=== PATIENT | male | born 1930 | race Caucasian/White ===

== ENCOUNTER 2018-05-31 22:49 | Observation (INO) ==
[2018-05-31] MEDS ORDERED: Ipratropium/Albuterol Neb 3 ML IH ONE (22:59)
[2018-05-31] MEDS ORDERED: methylPREDNISolone 125 MG/2 ML VIAL IVP ONE (23:19)
--- NOTE | 2018-05-31 23:20 | Emergency Department Note ---
Addendum entered and electronically signed by Berry Maldonado DO 06/01/18 00:50: 05/31/2018. EKG. Normal sinus rhythm. Heart rate 81. DC 160. QRS 90. QTC 442. Normal axis. No acute ST elevation or depression. Original Note: Disposition Clinical Impression: COPD exacerbation Dyspnea Qualifiers: Dyspnea type: unspecified Qualified Code(s): R06.00 - Dyspnea, unspecified Disposition: Admitted As Inpatient Condition: Fair Time of Disposition: 00:48 SOB HPI - General Chief Complaint: ED Shortness of Breath/Dyspnea Stated Complaint: kellie hx of copd Time Seen by Provider: 05/31/18 22:58 Source: patient, family Mode of arrival: ambulatory Limitations: no limitations Nursing Notes Reviewed: Yes Vital Signs Reviewed: Yes - History of Present Illness Patient is an 87-year-old male with past medical history of hypertension, hyperlipidemia, CHF, COPD. He currently takes daily Lasix, Ventolin inhaler. Does not take any current oral steroids or antibiotics. He presents today due to concern for COPD exacerbation. He states that he uses 2 L nasal cannula at home while at rest, 3 L when up and exerting himself. Over the past week, he has had increased cough above baseline, productive phlegm, increasing shortness of breath especially with exertion. He denies any other fevers, nausea, vomiting, diarrhea, abdominal pain. Denies any overt chest pain but does state several times that he is worried that he may have had a heart attack within the past week. He is having history of bypass but denies any history of any stents or NV. - Related Data Home Medications Medication Instructions Recorded Confirmed Furosemide [Lasix] 20 mg PO DAILY 10/15/15 06/01/18 Albuterol Neb [AccuNeb] 0.63 mg IH Q6H PRN 09/14/16 06/01/18 Enalapril Maleate [Vasotec] 10 mg PO DAILY 09/14/16 06/01/18 Metoprolol Tartrate [Lopressor] 25 mg PO DAILY 09/14/16 06/01/18 Omeprazole [PriLOSEC] 40 mg PO DAILY 09/14/16 06/01/18 Simvastatin [Zocor] 40 mg PO DAILY 09/14/16 06/01/18 Albuterol Sulfate [Ventolin Hfa] 18 gm IH Q4H PRN 06/01/18 06/01/18 Aspirin Enteric Coated [Aspirin EC] 81 mg PO DAILY 06/01/18 06/01/18 Cholecalciferol (Vitamin D3) 1,000 unit PO DAILY 06/01/18 06/01/18 [Vitamin D] Cyanocobalamin (Vitamin B-12) 50 mcg PO DAILY 06/01/18 06/01/18 [Vitamin B-12] Finasteride [Proscar] 5 mg PO DAILY 06/01/18 06/01/18 Isosorbide MONOnitrate (24 HR) 30 mg PO DAILY 06/01/18 06/01/18 [Imdur] Previous Rx's Medication Instructions Recorded Tamsulosin [Flomax] 0.4 mg PO HS #30 capsule 12/25/15 Allergies Allergy/AdvReac Type Severity Reaction Status Date / Time Qanzscp-Qhj-Vrv Reductase Allergy See Verified 10/15/15 16:55 Inhibitor Comments [HMG-Coa Reductase Inhibitors] clopidogrel AdvReac Shakiness Verified 10/15/15 16:55 All systems ED: reviewed and negative except as stated. Constitutional: Denies: fever Cardiovascular: Denies: chest pain Respiratory: Reports: dyspnea Gastrointestinal: Denies: abdominal pain, nausea, vomiting, diarrhea Genitourinary: Denies: urgency, dysuria Integumentary: Denies: rash Neurological: Denies: headache, weakness, numbness, paresthesias Past Medical History - Past Medical History Attestation: Yes The following information was validated with the patient. Medical history: Reports: cardiomyopathy, CHF, COPD, hypertension, myocardial infarction Surgical history: Reports: coronary bypass (CABG) Psychiatric history: Reports: no psych history - Social History Smoking Status: Never smoker Smokeless Tobacco Status: No Alcohol use: Reports: none Drug use: Reports: none Physical Exam - General Limitations: no limitations General appearance: alert - Head Head exam: atraumatic, normocephalic, normal inspection - Eye Eye exam: Present: normal appearance, PERRL, EOMI - ENT ENT exam: normal exam, normal oropharynx, mucous membranes moist - Neck Neck exam: Present: normal inspection, full ROM, trachea midline - Chest Chest inspection: Present: normal inspection, symmetric chest wall rise - Respiratory Respiratory exam: Present: other (Significant wheezes throughout, decreased aeration throughout) - Cardiovascular Cardiovascular exam: Present: regular rate, normal rhythm, normal heart sounds - Abdominal Exam Abdominal exam: Present: soft, Non-Tender. Absent: tenderness, distention, guarding, rebound, rigidity - Extremities Exam Extremities exam: Present: normal inspection, full ROM, pedal edema (Trace pedal edema bilaterally). Absent: tenderness, calf tenderness - Neurological Exam Neurological exam: Present: alert, oriented X3 - Psychiatric Psychiatric exam: Present: normal affect, normal mood - Skin Skin exam: Present: warm, dry, intact, normal color Course Course Narrative: Patient was 91% on 2 L nasal cannula oxygen when he arrived. He is now currently receiving a DuoNeb treatment and is 98% while on treatment. He has significant wheezing throughout all lung haro and decreased aeration throughout. Otherwise, the rest of the physical exam was fairly benign. We will obtain basic blood work, troponin, EKG, chest x-ray. With near hypoxia on home O2, increased work of breathing, significant wheezing, will plan on admitting the patient. We will give azithromycin for COPD exacerbation along with Solu-Medrol and DuoNeb 3. 00:45 chest x-ray negative. Troponin negative. EKG showed no acute ST elevation or depression. Due to increased oxygen demand, increased work of breathing, we will admit for further care. Patient is not requiring BiPAP at this time. Chest X-Ray 05/31/18 23:18 IMPRESSION: Negative portable chest. D/ / Franklyn Garcia MD / Franklyn Garcia MD Interpreting Provider: Franklyn Garcia MD Vital Signs Temperature 98.1 F 05/31/18 22:54 Pulse Rate 88 05/31/18 22:54 Respiratory Rate 28 05/31/18 22:54 Blood Pressure 188/90 05/31/18 22:54 O2 Sat by Pulse Oximetry 91 05/31/18 22:54 Temperature 97.8 F 06/01/18 04:00 Pulse Rate 83 06/01/18 04:00 Respiratory Rate 16 06/01/18 04:00 Blood Pressure 156/91 06/01/18 04:00 O2 Sat by Pulse Oximetry 95 06/01/18 04:00 Oxygen Delivery Oxygen Delivery Nasal Cannula Shortness of Breath/Dyspnea - MDM Narrative Medical decision making narrative: Patient was 91% on 2 L nasal cannula oxygen when he arrived. He is now currently receiving a DuoNeb treatment and is 98% while on treatment. He has significant wheezing throughout all lung haro and decreased aeration throughout. Otherwise, the rest of the physical exam was fairly benign. We will obtain basic blood work, troponin, EKG, chest x-ray. With near hypoxia on home O2, increased work of breathing, significant wheezing, will plan on admitting the patient. We will give azithromycin for COPD exacerbation along with Solu-Medrol and DuoNeb 3. 00:45 chest x-ray negative. Troponin negative. EKG showed no acute ST elevation or depression. Due to increased oxygen demand, increased work of breathing, we will admit for further care. Patient is mildly improved after treatment, not requiring BiPAP at this time. - Medical Records Medical records reviewed: Yes I reviewed the patient's medical records. - Lab Data Lab results reviewed: Yes I reviewed the patient's lab results. Result diagrams: 06/01/18 03:47 06/01/18 03:47 Lab Results 05/31/18 05/31/18 05/31/18 Range/Units 23:18 23:18 23:18 WBC 10.5 (4.3-11.1) K/mcL RBC 3.83 L (4.19-5.50) M/mcL Hgb 11.8 L (12.9-16.9) g/dL Hct 36.5 L (37.5-50.1) % MCV 95.3 (83.0-100.0) fL MCH 30.8 (28.0-33.3) pg MCHC 32.3 (31.6-35.5) g/dL RDW 12.5 (11.5-14.5) % Plt Count 154 (140-400) K/mcL MPV 11.8 (9.4-12.4) fL Immature Gran % 0.3 (0-4) % Seg Neutrophils % 74.3 % Lymphocytes % 12.8 % Monocytes % 6.7 % Eosinophils % 5.5 % Basophils % 0.4 % Neutrophils # 7.8 (1.6-8.9) K/mcL Lymphocytes # 1.3 (0.6-4.6) K/mcL Monocytes # 0.7 (0.0-1.3) K/mcL Eosinophils # 0.6 (0.0-0.6) K/mcL Basophils # 0.0 (0.0-0.2) K/mcL Sodium 135 L (136-145) mEq/L Potassium 4.3 (3.5-5.1) mEq/L Chloride 100 (98-107) mEq/L Carbon Dioxide 27 (23-29) mEq/L BUN 29 H (8-23) mg/dL Creatinine 1.02 (0.70-1.30) mg/dL Est GFR ( Amer) > 60 (> 60) Est GFR (Non-Af Amer) > 60 (> 60) BUN/Creatinine Ratio 28 H (6-26) Glucose 119 H (70-105) mg/dL Calculated Osmolality 287 (280-300) Calcium 9.4 (8.6-10.3) mg/dL Troponin I < 0.03 (< 0.04) ng/mL B-Natriuretic Peptide 54 (Less than 100) pg/mL - Radiology Data Radiology results reviewed: Yes I reviewed the patient's radiology results. Chest X-Ray 05/31/18 23:18 IMPRESSION: Negative portable chest. D/ / Franklyn Garcia MD / Franklyn Garcia MD Interpreting Provider: Franklyn Garcia MD - EKG Data EKG attestation: Yes I reviewed and interpreted this EKG. S.B.A.R. - S.B.A.R. Situation: Demographics, MOA Background: Presenting Complaint, Relevant PMH, Meds, & Allergies Assessment: Vital Signs, Course and respsone to treatment, Exam Concerns, Patient/Family Expectation, Pertinant Lab Results, Outstanding Labs Recommendation: Barrier(s) to disposition, Recommendation based on pending studies, treatments, or consults S.B.A.R. Report Given to: Dr. Yang, [facility] pending Attestation Statement - Attestation Attestation: I examined this patient and my medical decision-making was reviewed with the Resident Physician. I agree with the documented findings, disposition and treatment plan as described except to the extent set forth below. Findings consistent with COPD exacerbation. Bronchodilators, steroids, antibiotics.
[2018-05-31] MEDS ORDERED: Azithromycin 500 MG in D5% in Water 250 ML IVPB ONE (23:42)
[2018-06-01 00:27] LABS: Troponin I < 0.03 ng/mL (< 0.04)
[2018-06-01 00:33] LABS: Basophils % 0.4 %; Eosinophils # 0.6 K/mcL (0.0-0.6); Eosinophils % 5.5 %; Hematocrit 36.5 % (37.5-50.1); Hemoglobin 11.8 g/dL (12.9-16.9); Immature Granulocytes % 0.3 % (0-4); Lymphocytes # 1.3 K/mcL (0.6-4.6); Lymphocytes % 12.8 %; Mean Corpuscular HGB Conc 32.3 g/dL (31.6-35.5); Mean Corpuscular Hemoglobin 30.8 pg (28.0-33.3); Mean Corpuscular Volume 95.3 fL (83.0-100.0); Mean Platelet Volume 11.8 fL (9.4-12.4); Monocytes # 0.7 K/mcL (0.0-1.3); Monocytes % 6.7 %; Neutrophils # 7.8 K/mcL (1.6-8.9); Platelet Count 154 K/mcL (140-400); Red Blood Count 3.83 M/mcL (4.19-5.50); Red Cell Distribution Width 12.5 % (11.5-14.5); Segmented Neutrophils % 74.3 %
[2018-06-01] MEDS ORDERED: Acetaminophen 325 MG TABLET PO PRN (01:27)
[2018-06-01] MEDS ORDERED: Naloxone 0.4 MG/ML INJ IVP PRN (01:27)
[2018-06-01] MEDS ORDERED: 0.9 % Sodium Chloride 1,000 ML IVC SCH (01:30)
[2018-06-01 03:03] LABS: Blood Urea Nitrogen 29 mg/dL (8-23); Calcium 9.4 mg/dL (8.6-10.3); Carbon Dioxide 27 mEq/L (23-29); Chloride 100 mEq/L (98-107); Glucose 119 mg/dL (70-105); Osmolality,Calculated 287 (280-300); Potassium 4.3 mEq/L (3.5-5.1); Sodium 135 mEq/L (136-145)
[2018-06-01 03:31] LABS: BUN/Creatinine Ratio 28 (6-26); eGFR For Non-African Americans > 60 (> 60)
[2018-06-01 04:32] LABS: Basophils % 0.2 %; Eosinophils # 0.1 K/mcL (0.0-0.6); Eosinophils % 0.6 %; Hemoglobin 12.5 g/dL (12.9-16.9); Immature Granulocytes % 0.4 % (0-4); Lymphocytes # 0.4 K/mcL (0.6-4.6); Lymphocytes % 3.6 %; Mean Corpuscular HGB Conc 32.9 g/dL (31.6-35.5); Mean Corpuscular Hemoglobin 31.8 pg (28.0-33.3); Mean Corpuscular Volume 96.7 fL (83.0-100.0); Mean Platelet Volume 11.8 fL (9.4-12.4); Monocytes # 0.1 K/mcL (0.0-1.3); Monocytes % 0.9 %; Neutrophils # 10.6 K/mcL (1.6-8.9); Platelet Count 145 K/mcL (140-400); Red Blood Count 3.93 M/mcL (4.19-5.50); Red Cell Distribution Width 12.1 % (11.5-14.5); Segmented Neutrophils % 94.3 %
--- NOTE | 2018-06-01 04:47 | Internal Med History&Physical ---
Date of Encounter: 06/01/18 Time of Encounter: 04:35 Internal Medicine - H&P: HPI Chief complaint: SOB History of present illness: Mr. Garza is a 87 year old male with a past medical history of hypertension, COPD on home oxygen, hyperlipidemia and heart failure with preserved ejection fraction with an EF of 60% (based on echo in 2016) who presents with acute onset shortness of breath. Patient states that he was in his usual state of health when all of a sudden around 3:00 he suddenly started having significant wheezing. Patient states he took his nebulizer treatments which did not help. It was not until he took his sublingual nitroglycerin that his symptoms subside. However, it is unclear if patient is a poor historian given that the history obtained from the ED is somewhat different. Per ED report, over the past week, he has had increased cough above baseline, productive phlegm, increasing shortness of breath especially with exertion. However patient does confirm worsening shortness of breath with exertion. He denies any other fevers , nausea, vomiting, diarrhea, abdominal pain. Denies any overt chest pain but does state he gets intermittent left-sided chest pain which she describes as a dull ache that is nonexertional, nonradiating, non-positional and nonpleuritic. On initial assessment in the ED, Patient was 91% on 2 L nasal cannula oxygen when he arrived subsequently increased improved to 98% after receiving treatment. Significant wheezing throughout all lung haro and decreased aeration throughout were noted. Was started on azithromycin for COPD exacerbation along with Solu-Medrol and DuoNeb 3. Past Med Surg Social Fam HX - Past Medical History Medical history: cardiomyopathy, CHF, COPD, hypertension, myocardial infarction Additional medical history: CAD, BPH, PAD,. SOB. angina pectoris Psychiatric history: no psych history - Past Surgical History Surgical History: coronary bypass (CABG) Additional surgical history: heart cath x3, bowel surgery - Social History Smoking Status: Never smoker Smokeless Tobacco Status: No Alcohol use: none Drug use: none - Family History Mother Living Status: Hx Family Cardiac Disorders: Yes (mi) Hx Family Cancer: Yes (breast ca) Father Living Status: Hx Family Cardiac Disorders: Yes Hx Family Respiratory Disorders: Yes Internal Medicine - H&P: Meds Furosemide [Lasix] 20 mg PO DAILY 10/15/15 [History] Tamsulosin [Flomax] 0.4 mg PO HS #30 capsule 12/25/15 [Rx] Albuterol Neb [AccuNeb] 0.63 mg IH Q6H PRN 09/14/16 [History] Enalapril Maleate [Vasotec] 10 mg PO DAILY 09/14/16 [History] Metoprolol Tartrate [Lopressor] 25 mg PO DAILY 09/14/16 [History] Omeprazole [PriLOSEC] 40 mg PO DAILY 09/14/16 [History] Simvastatin [Zocor] 40 mg PO DAILY 09/14/16 [History] Albuterol Sulfate [Ventolin Hfa] 18 gm IH Q4H PRN 06/01/18 [History] Aspirin Enteric Coated [Aspirin EC] 81 mg PO DAILY 06/01/18 [History] Cholecalciferol (Vitamin D3) [Vitamin D] 1,000 unit PO DAILY 06/01/18 [History] Cyanocobalamin (Vitamin B-12) [Vitamin B-12] 50 mcg PO DAILY 06/01/18 [History] Finasteride [Proscar] 5 mg PO DAILY 06/01/18 [History] Isosorbide MONOnitrate (24 HR) [Imdur] 30 mg PO DAILY 06/01/18 [History] 3 Allergy/AdvReac Type Severity Reaction Status Date / Time Mrtncdf-Brd-Puk Reductase Allergy See Verified 10/15/15 16:55 Inhibitor Comments [HMG-Coa Reductase Inhibitors] clopidogrel AdvReac Shakiness Verified 10/15/15 16:55 All Systems PM: A 10-system review of systems was performed and is negative for pertinent findings except as documented above in the HPI. - Constitutional Constitutional: no chills, no fever(s), no night sweats - EENT Eyes: no change in vision, no discharge, no pain, no photophobia Ears: no ear discharge, no ear pain, no tinnitus Nose, mouth and throat: no dysphagia, no nasal discharge, no neck pain, no sore throat - Cardiovascular Cardiovascular ROS IM: no chest pain, no diaphoresis, no dyspnea, no lightheadedness, no palpitations, no syncope - Respiratory Respiratory: no cough, no dyspnea, no wheezing, no excessive phlegm production - Gastrointestinal Gastrointestinal: no abdominal pain, no diarrhea, no hematemesis, no hematochezia, no melena, no nausea, no vomiting - Musculoskeletal Musculoskeletal ROS IM: no numbness, no tingling - Integumentary Integumentary IM: no rash, no unusual bruising - Neurological Neurological ROS: no confusion, no convulsions, no focal weakness, no numbness, no tingling, no tremor(s) - Hematologic/Lymphatic Hematologic/Lymphatic: no easy bruising - Constitutional Vitals: Temp Pulse Resp BP Pulse Ox 97.8 F 85 18 155/81 94 06/01/18 02:33 06/01/18 02:33 06/01/18 02:33 06/01/18 02:33 06/01/18 02:33 Exam: General: Alert and oriented 3; lying in bed in no acute distress Skin:Normal color, no rash, no lesions. HEENT:EOM, pupils equal, round and reactive. Cardiovascular:Normal S1 & S2, no rubs, murmurs or gallops. No JVD. Pulse regular. Lungs:Normal breath sounds, no wheezes or crackles. Abdomen:Soft, non-tender, no rigidity. Extremities:No deformity, no edema or tenderness, no joint swelling or clubbing. Neurological:Normal cognition and motor skills. Pulses:Carotid and radial pulses normal +2. Rest of the physical exam is non contributory Internal Med - H&P Results - Labs CBC & Chem 7: 06/01/18 03:47 06/01/18 03:47 Labs: Short CBC 06/01/18 Range/Units 03:47 WBC 11.3 H (4.3-11.1) K/mcL Hgb 12.5 L (12.9-16.9) g/dL Hct 38.0 (37.5-50.1) % Plt Count 145 (140-400) K/mcL Neutrophils # 10.6 H (1.6-8.9) K/mcL - Assessment and plan (1) Dyspnea Current Visit: Yes Status: Acute Assessment and plan: Dyspnea likely secondary to COPD exacerbation. However, given a different history in which patient's symptoms improved after taking his nitroglycerin suggests maybe a CHF component. However patient does not report any orthopnea or paroxysmal nocturnal dyspnea nor does he had evidence of volume overload on physical examination. Low suspicion for PE however the chronicity of his symptoms with either acute or been progressing for several days is unclear and there was no evidence of tachycardia on initial presentation. At this time we will treat for COPD exacerbation. Continue with DuoNeb's and steroids and antibiotic coverage. Consider echocardiogram in the morning. Qualifiers: Dyspnea type: unspecified Qualified Code(s): R06.00 - Dyspnea, unspecified (2) COPD exacerbation Current Visit: Yes Status: Acute Assessment and plan: Mild COPD exacerbation without evidence of pneumonia on chest x-ray. Patient received DuoNeb treatments in the ED. He is feeling much better however, patient still has wheezing on physical examination. We will continue with treatment for COPD, dual nebs, steroids and azithromycin. (3) History of coronary artery disease Current Visit: No Status: Chronic Assessment and plan: History of coronary artery disease with reported intermittent left-sided chest pain described as achy occurring on and off at is non-positional, nonpleuritic and nonexertional. Initial troponin were negative. Negative troponins on initial assessment. EKG was reviewed which was normal and unchanged from previous EKG. At this point given his atypical chest pain which he states did not occur at the time of his reported onset of symptoms, will continue to trend troponins place patient on telemetry and consider echocardiogram in the morning. (4) BPH (benign prostatic hypertrophy) with urinary retention Current Visit: No Status: Acute Assessment and plan: Continue patient's home medications. (5) DVT prophylaxis Current Visit: No Status: Acute Assessment and plan: Subcutaneous heparin. - Time Spent With Patient Total time spent is greater than 50% in coordination of care (as documented) at patient's floor/unit and/or counseling patient:
[2018-06-01 05:00] LABS: Alanine Aminotransferase 9 Units/L (7-52); Albumin 4.2 g/dL (3.5-5.7); Albumin/Globulin Ratio 1.6 (1.1-2.2); Alkaline Phosphatase 104 Units/L (34-104); Aspartate Amino Transferase 12 Units/L (13-39); BUN/Creatinine Ratio 26 (6-26); Bilirubin,Total 0.4 mg/dL (0.3-1.0); Blood Urea Nitrogen 25 mg/dL (8-23); Calcium 9.5 mg/dL (8.6-10.3); Carbon Dioxide 29 mEq/L (23-29); Chloride 99 mEq/L (98-107); Globulin 2.6 g/dL (2.4-3.5); Glucose 153 mg/dL (70-105); Osmolality,Calculated 289 (280-300); Potassium 4.4 mEq/L (3.5-5.1); Sodium 136 mEq/L (136-145); Total Protein 6.8 g/dL (6.4-8.9); eGFR For Non-African Americans > 60 (> 60)
[2018-06-01 05:49] LABS: Troponin I < 0.03 ng/mL (< 0.04)
[2018-06-01] MEDS: MethylPREDNISolone 40 MG/ML VIAL IVP SCH ×3 (06:21→18:09)
[2018-06-01] MEDS: Isosorbide MONOnitrate (24 HR) 30 MG TAB.ER.24H PO SCH (09:39)
[2018-06-01] MEDS: Cholecalciferol (D-3) 1,000 UNIT TABLET PO SCH (09:39)
[2018-06-01] MEDS: Finasteride 5 MG TABLET PO SCH (09:40)
[2018-06-01] MEDS: Furosemide 20 MG TABLET PO SCH (09:40)
[2018-06-01] MEDS: Lisinopril 20 MG TABLET PO SCH (09:41)
[2018-06-01] MEDS: Aspirin Enteric Coated 81 MG Tablet PO SCH (09:41)
[2018-06-01] MEDS: Cyanocobalamin (B-12) 1,000 MCG TABLET PO SCH (09:41)
[2018-06-01] MEDS: *HR* Heparin 5,000 UNIT/ML VIAL SQ SCH ×2 (09:44→18:09)
[2018-06-01] MEDS: Ipratropium/Albuterol Neb 3 ML IH PRN ×2 (16:10→23:59)
[2018-06-02] MEDS ORDERED: Melatonin 3 MG TABLET PO ONE ×2 (00:30→20:51)
[2018-06-02] MEDS: *HR* Heparin 5,000 UNIT/ML VIAL SQ SCH ×4 (00:45→23:16)
[2018-06-02] MEDS: MethylPREDNISolone 40 MG/ML VIAL IVP SCH ×4 (00:45→17:53)
--- NOTE | 2018-06-02 06:36 | Electrocardiograph Report ---
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
[2018-06-02] MEDS: Ipratropium/Albuterol Neb 3 ML IH PRN ×2 (07:42→20:33)
[2018-06-02] MEDS: Cholecalciferol (D-3) 1,000 UNIT TABLET PO SCH (10:14)
[2018-06-02] MEDS: Aspirin Enteric Coated 81 MG Tablet PO SCH (10:14)
[2018-06-02] MEDS: Furosemide 20 MG TABLET PO SCH (10:14)
[2018-06-02] MEDS: Lisinopril 20 MG TABLET PO SCH (10:14)
[2018-06-02] MEDS: Finasteride 5 MG TABLET PO SCH (10:15)
[2018-06-02] MEDS: Isosorbide MONOnitrate (24 HR) 30 MG TAB.ER.24H PO SCH (10:15)
[2018-06-02] MEDS: Cyanocobalamin (B-12) 1,000 MCG TABLET PO SCH (10:15)
[2018-06-02] MEDS: Azithromycin 250 MG TABLET PO SCH (10:16)
--- NOTE | 2018-06-02 14:35 | Internal Med Progress Note ---
Hospitalist Progress Note - Encounter Date of Encounter: 06/02/18 Time of Encounter: 10:50 - Subjective Interval History: Feels much better today; improved shortness of breath and wheezing; improving cough; no chest pain, palpitations, fever/chills; - Exam Vitals: Temp Pulse Resp BP Pulse Ox 97.9 F 77 18 149/85 93 06/02/18 11:09 06/02/18 11:06/02/18 07:43 06/02/18 11:06/02/18 11:09 Exam: General: elderly male lying comfortably in bed in no acute distress Neck: No lymphadenopathy. No JVD. No carotid bruits. No palpable thyroid. Chest: B/L decreased air entry; scattered wheezing; Heart: Normal S1 & S2; rhythmic. No rubs or murmurs. Abdomen: Non-distended, soft and nontender Neurological: Awake, alert and oriented to person, place and time. No focal deficits. Psych: Affect appropriate. - Assessment and Plan (1) COPD exacerbation Current Visit: Yes Status: Acute Assessment and Plan: improving; continue macrolide, taper down IV steroids as tolerated; continue breathing treatments, supplemental O2 and supportive care; imaging showed no e/o- infiltrates; Plan of care discussed with patient's son at bedside. (2) DVT prophylaxis Current Visit: Yes Status: Acute Assessment and Plan: on s.c Heparin; (3) History of coronary artery disease Current Visit: Yes Status: Chronic (4) BPH (benign prostatic hypertrophy) with urinary retention Current Visit: Yes Status: Chronic (5) Essential hypertension Current Visit: Yes Status: Chronic Assessment and Plan: Blood pressure minimally elevated but acceptable at his age, likely due to IV steroids. Continue current management. (6) Chronic respiratory failure Current Visit: Yes Status: Chronic Assessment and Plan: Patient is noted to be on 2 L/m supplemental oxygen at rest and 3 L/m on ambulation, due to underlying COPD. (7) Congestive heart failure Current Visit: Yes Status: Chronic Assessment and Plan: Not in acute exacerbation. Echocardiogram shows preserved EF, mild diastolic dysfunction. Continue Lasix, beta bela, Imdur, PRIYA inhibitor. - Time Spent with Patient Total time spent is greater than 50% in coordination of care (as documented) at patient's floor/unit and/or counseling patient: Plan of Care Discussed with: patient Internal Medicine: Result - Labs CBC & Chem 7: 06/01/18 03:47 06/01/18 03:47 Labs: Cardiac Enzymes 06/01/18 Range/Units 17:14 Troponin I < 0.03 (< 0.04) ng/mL - Impressions Impressions Echocardiogram 06/01/18 08:49 Impressions: LVEF 65%. Normal LV chamber size, wall thickness and function. Mild left ventricular diastolic dysfunction. Normal right ventricular structure and function. No significant valvular dysfunction. No pulmonary hypertension. Left Ventricular Wall Motion: Rest Echo Findings All wall segments showed normal motion. Findings: Study Quality * Technically adequate exam. ECG Findings * Normal sinus rhythm. Left Ventricle * LVEF 65%. * Normal LV chamber size, wall thickness and function. * Mild left ventricular diastolic dysfunction. Right Ventricle * Normal right ventricular structure and function. Left Atrium * Normal left atrial size. Right Atrium * Normal right atrial size. Interatrial Septum * Interatrial septum not well evaluated. Aortic Valve * Mildly calcified aortic valve leaflets. * No aortic stenosis. * Trace aortic regurgitation. Mitral Valve * Normal mitral valve structure. * Trace mitral regurgitation. Tricuspid Valve * Normal tricuspid valve structure and function. * Trace tricuspid regurgitation. * Estimated RVSP is 31 mmHg. * Estimated RA pressure is 5 mmHg. * No pulmonary hypertension. Pulmonic Valve * Pulmonic valve not well visualized. * No pulmonic regurgitation. Aorta * Normally sized aortic root. Pericardium * The pericardium appears normal. IVC * Normal IVC dimensions and inspiratory collapse. Consult Discharge Plan - Plan Referrals: Carlita Domínguez DO [Primary Care Provider] - (6) Chronic respiratory failure Qualifiers: Respiratory failure complication: hypoxia Qualified Code(s): J96.11 - Chronic respiratory failure with hypoxia (7) Congestive heart failure Qualifiers: Heart failure type: diastolic Heart failure chronicity: chronic Qualified Code(s): I50.32 - Chronic diastolic (congestive) heart failure
[2018-06-03] MEDS: MethylPREDNISolone 40 MG/ML VIAL IVP SCH (04:52)
[2018-06-03] MEDS: Cyanocobalamin (B-12) 1,000 MCG TABLET PO SCH (08:30)
[2018-06-03] MEDS: Cholecalciferol (D-3) 1,000 UNIT TABLET PO SCH (08:30)
[2018-06-03] MEDS: *HR* Heparin 5,000 UNIT/ML VIAL SQ SCH (08:30)
[2018-06-03] MEDS: Lisinopril 20 MG TABLET PO SCH (08:30)
[2018-06-03] MEDS: Isosorbide MONOnitrate (24 HR) 30 MG TAB.ER.24H PO SCH (08:30)
[2018-06-03] MEDS: Furosemide 20 MG TABLET PO SCH (08:30)
[2018-06-03] MEDS: Azithromycin 250 MG TABLET PO SCH (08:31)
[2018-06-03] MEDS: Finasteride 5 MG TABLET PO SCH (08:31)
[2018-06-03] MEDS: Aspirin Enteric Coated 81 MG Tablet PO SCH (08:31)
[2018-06-03 11:09] VITALS: BP 115/82
[2018-06-03] MEDS: Ipratropium/Albuterol Neb 3 ML IH SCH ×2 (12:09→16:03)
--- NOTE | 2018-06-03 13:42 | Discharge Summary ---
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 Garza is a 87 year old male with the above medical problems, admitted with shortness of breath and wheezing and respiratory distress. He was noted to be in an acute exacerbation of COPD, started on IV steroids, bronchodilators, supplemental oxygen and macrolide antibiotics. Chest x-ray showed no focal infiltrates. Transthoracic echocardiogram showed preserved EF, mild LV diastolic dysfunction. Patient improved with this regimen, oxygen requirements are currently back to baseline. He does have wheezing and paradoxical breathing using abdominal muscles, intermittently but he does not report shortness of breath or chest pain. Nursing staff walked the patient, who was able to ambulate well without exertional dyspnea, on his home oxygen settings, no wheezing noted. Plan of care discussed with patient and his son at bedside, agreeable to being discharged today. Appropriate use of nebulizer and steroid inhalers has been reinforced and encouraged to follow up with pulmonology as outpatient. Discharge discussed with: patient, family, nurse - Time Spent with Patient Total time spent providing and/or coordinating discharge services: Greater than 30 minutes (45 min) - Discharge Medications Prescriptions: Azithromycin [Zithromax] 500 mg PO DAILY #4 tablet Budesonide/Formoterol 160/4.5 [Symbicort 160/4.5] 2 puff IH BIDR #2 inhaler predniSONE [PredniSONE] 60 mg PO DAILY 12 Days tablet Home Medications: Furosemide [Lasix] 20 mg PO DAILY 10/15/15 [History] Tamsulosin [Flomax] 0.4 mg PO HS #30 capsule 12/25/15 [Rx] Albuterol Neb [AccuNeb] 0.63 mg IH Q6H PRN 09/14/16 [History] Enalapril Maleate [Vasotec] 10 mg PO DAILY 09/14/16 [History] Metoprolol Tartrate [Lopressor] 25 mg PO DAILY 09/14/16 [History] Omeprazole [PriLOSEC] 40 mg PO DAILY 09/14/16 [History] Simvastatin [Zocor] 40 mg PO DAILY 09/14/16 [History] Albuterol Sulfate [Ventolin Hfa] 18 gm IH Q4H PRN 06/01/18 [History] Aspirin Enteric Coated [Aspirin EC] 81 mg PO DAILY 06/01/18 [History] Cholecalciferol (Vitamin D3) [Vitamin D3] 1,000 unit PO DAILY 06/01/18 [History] Cyanocobalamin (Vitamin B-12) [Vitamin B-12] 50 mcg PO DAILY 06/01/18 [History] Finasteride [Proscar] 5 mg PO DAILY 06/01/18 [History] Isosorbide MONOnitrate (24 HR) [Imdur] 30 mg PO DAILY 06/01/18 [History] Azithromycin [Zithromax] 500 mg PO DAILY #4 tablet 06/03/18 [Rx] Budesonide/Formoterol 160/4.5 [Symbicort 160/4.5] 2 puff IH BIDR #2 inhaler 04/13 [Rx] Ipratropium/Albuterol Neb [Duoneb] 3 ml IH Q6HR PRN 30 Days #0 06/03/18 [Rx] predniSONE [PredniSONE] 60 mg PO DAILY 12 Days tablet 06/03/18 [Rx] Allergies/Adverse Reactions: 3 Allergy/AdvReac Type Severity Reaction Status Date / Time Zmeyxur-Wwx-Afb Reductase Allergy See Verified 10/15/15 16:55 Inhibitor Comments [HMG-Coa Reductase Inhibitors] clopidogrel AdvReac Shakiness Verified 10/15/15 16:55 Date of admission: 06/01/18 00:50 Primary care physician: Torrey Barbosa Consults: 06/01/18 02:40 Consult to Pig Handler [CONS] Routine Reason for SW Consult: patient wears oxygen at home, f/u on discharge Discharging clinician: Camryn Norman Anticipated date of discharge: 06/03/18 - Constitutional Vitals: Temp Pulse Resp BP Pulse Ox 98.0 F 77 18 115/82 95 06/03/18 11:03 06/03/18 11:03 06/03/18 12:09 06/03/18 11:03 06/03/18 12:09 General appearance: Present: A&O X 3, answers questions appropriately Exam: . - Respiratory Respiratory exam: Present: CTAB (coarse breath sounds B/L), wheezes (B/L wheezing, improved after breathing treatment). Absent: accessory muscle use, rales, rhonchi - Patient Status Disposition: Home, Self-Care Condition: Good Functional capacity at discharge: independent ambulation Overall status at discharge: patient is progressing back to baseline - Discharge Instructions Instructions: Prednisone (By mouth), Azithromycin (By mouth), Budesonide/ Formoterol (By breathing), COPD Exacerbation, [employer] (GEN) Follow Up With: Shawna Domínguez DO [Primary Care Provider] - 06/09/18 10:35 am (f/u with shawna domínguez [employer]) Additional Instructions: F/up with PCP in 1-2 weeks - Diet and Activity Activity: resume usual activities as tolerated, wear oxygen at all times Diet: low fat, low cholesterol, low salt diet
[2018-06-03] MEDS ORDERED: Budesonide/Formoterol 160/4.5 1 PUFF INH IH SCH (22:00)
[2018-06-04] MEDS ORDERED: predniSONE 20 MG TABLET PO SCH (09:00)
== END 2018-06-03 17:34 | disposition home or self-care (01) ==
LOC: EMEROOARM 22:49 → 2NENU 22:49 → SUATTDRO 06-01 01:44 → 2NENU 06-01 02:04
PROVIDERS: ADMIT Pediatrics; ATTEND Internal Medicine

== ENCOUNTER 2020-04-21 20:20 | Observation (INO) ==
[2020-04-21] MEDS ORDERED: Ipratropium/Albuterol Neb 3 ML IH ONE (20:47)
[2020-04-21 21:10] LABS: Basophils % 0.4 %; Eosinophils # 0.2 K/mcL (0.0-0.6); Eosinophils % 2.7 %; Hematocrit 34.5 % (37.5-50.1); Hemoglobin 10.9 g/dL (12.9-16.9); Immature Granulocytes % 0.3 % (0-4); Lymphocytes # 1.2 K/mcL (0.6-4.6); Lymphocytes % 17.4 %; Mean Corpuscular HGB Conc 31.6 g/dL (31.6-35.5); Mean Corpuscular Hemoglobin 28.6 pg (28.0-33.3); Mean Corpuscular Volume 90.6 fL (83.0-100.0); Monocytes # 0.7 K/mcL (0.0-1.3); Monocytes % 9.8 %; Neutrophils # 4.7 K/mcL (1.6-8.9); Platelet Count 247 K/mcL (140-400); Red Blood Count 3.81 M/mcL (4.19-5.50); Red Cell Distribution Width 13.3 % (11.5-14.5); Segmented Neutrophils % 69.4 %; White Blood Count 6.7 K/mcL (4.3-11.1)
[2020-04-21 21:18] LABS: Prothrombin Time 11.4 Seconds (9.4-12.1)
[2020-04-21 21:21] LABS: Activated Partial Thrombo Time 31.1 Seconds (26.0-36.0)
[2020-04-21] MEDS ORDERED: methylPREDNISolone 125 MG/2 ML VIAL IVP ONE (21:32)
[2020-04-21 21:35] LABS: Alanine Aminotransferase 9 Units/L (7-52); Albumin/Globulin Ratio 1.5 (1.1-2.2); Alkaline Phosphatase 97 Units/L (34-104); Aspartate Amino Transferase 12 Units/L (13-39); BUN/Creatinine Ratio 19 (6-26); Bilirubin,Direct 0.1 mg/dL (0.0-0.2); Bilirubin,Indirect 0.4 mg/dL (0.0-1.0); Bilirubin,Total 0.5 mg/dL (0.3-1.0); Blood Urea Nitrogen 19 mg/dL (8-23); Carbon Dioxide 26 mEq/L (23-29); Chloride 95 mEq/L (98-107); Globulin 2.6 g/dL (2.4-3.5); Glucose 115 mg/dL (70-105); Lipase 11 Units/L (11-82); Osmolality,Calculated 271 (280-300); Potassium 4.4 mEq/L (3.5-5.1); Sodium 129 mEq/L (136-145); Total Protein 6.6 g/dL (6.4-8.9); eGFR For African Americans > 60 (> 60); eGFR For Non-African Americans > 60 (> 60)
[2020-04-21 21:36] LABS: Troponin I 0.03 ng/mL (< 0.04)
[2020-04-21 21:54] LABS: VBG HCO3 30 mEq/L (21-27); VBG PCO2 59 mmHg (41-51); VBG PH 7.31 pH Units (7.32-7.42); VBG PO2 64 mmHg (25-50)
[2020-04-21 22:25] LABS: Adenovirus Not Detected (Not Detect); Bordetella Pertussis Not Detected (Not Detect); Chlamydophila pneumoniae Not Detected (Not Detect); Coronavirus 229E Not Detected (Not Detect); Coronavirus HKU1 Not Detected (Not Detect); Coronavirus NL63 Not Detected (Not Detect); Coronavirus OC43 Not Detected (Not Detect); Human Metapneumovirus Not Detected (Not Detect); Human Rhinovirus/Enterovirus Not Detected (Not Detect); Influenza A Subtype 2009 H1 Not Detected (Not Detect); Influenza B Not Detected (Not Detect); Mycoplasma pneumoniae Not Detected (Not Detect); Parainfluenza Virus 1 Not Detected (Not Detect); Parainfluenza Virus 2 Not Detected (Not Detect); Parainfluenza Virus 3 Not Detected (Not Detect); Parainfluenza Virus 4 Not Detected (Not Detect); Respiratory Syncytial Virus Not Detected (Not Detect)
[2020-04-21] MEDS ORDERED: Naloxone 0.4 MG/ML INJ IVP PRN (22:50)
[2020-04-21] MEDS ORDERED: Albuterol 2.5 MG/3 ML NEBULIZER IH PRN (22:52)
[2020-04-21] MEDS: Ipratropium/Albuterol Neb 3 ML IH SCH (23:39)
[2020-04-22] MEDS ORDERED: Azithromycin 500 MG in 0.9 % Sodium Chloride 250 ML IVPB SCH (03:00)
[2020-04-22] MEDS: Ipratropium/Albuterol Neb 3 ML IH SCH ×4 (04:15→22:15)
[2020-04-22 04:24] LABS: Bilirubin,Urine Negative (Negative); Blood,Urine Negative (Negative); Clarity,Urine Clear (Clear); Color,Urine Light-Yellow (Yellow); Glucose,Urine (UA) Normal (Normal); Ketones,Urine Negative (Negative); Leukocyte Esterase,Urine Negative (Negative); Nitrite,Urine Negative (Negative); Protein,Urine 200 mg/dL (Neg-Trace); RBC,Urine 0-3 per hpf (0-3); Specific Gravity,Urine 1.016 (1.010-1.025); Urobilinogen,Urine Normal (Normal); WBC,Urine 0-3 per hpf (0-3)
[2020-04-22] MEDS: *HR* Heparin 5,000 UNIT/ML VIAL SQ SCH ×2 (05:25→18:09)
[2020-04-22 05:56] LABS: Hematocrit 35.5 % (37.5-50.1); Mean Corpuscular Hemoglobin 28.4 pg (28.0-33.3); Mean Corpuscular Volume 91.7 fL (83.0-100.0); Mean Platelet Volume 10.5 fL (9.4-12.4); Platelet Count 263 K/mcL (140-400); Red Blood Count 3.87 M/mcL (4.19-5.50); Red Cell Distribution Width 13.3 % (11.5-14.5); White Blood Count 4.7 K/mcL (4.3-11.1)
[2020-04-22 06:15] LABS: BUN/Creatinine Ratio 20 (6-26); Blood Urea Nitrogen 19 mg/dL (8-23); Calcium 8.9 mg/dL (8.6-10.3); Carbon Dioxide 26 mEq/L (23-29); Chloride 95 mEq/L (98-107); Glucose 149 mg/dL (70-105); Magnesium 1.5 mg/dL (1.6-2.6); Osmolality,Calculated 275 (280-300); Phosphorous 3.7 mg/dL (2.7-4.5); Potassium 4.4 mEq/L (3.5-5.1); Sodium 130 mEq/L (136-145); eGFR For African Americans > 60 (> 60); eGFR For Non-African Americans > 60 (> 60)
[2020-04-22] MEDS: predniSONE 20 MG TABLET PO SCH (08:01)
[2020-04-22] MEDS ORDERED: 0.9 % Sodium Chloride 1,000 ML IVC SCH (08:45)
[2020-04-22] MEDS ORDERED: Doxycycline 100 MG in 0.9 % Sodium Chloride Mini Bag 100 ML IVPB SCH (18:00)
[2020-04-22] MEDS: *HR* HYDROcodone/Acet 5/325 mg TABLET PO PRN ×2 (18:20→23:27)
[2020-04-22] MEDS: Doxycycline 100 MG CAPSULE PO SCH (21:39)
[2020-04-23] MEDS: Ipratropium/Albuterol Neb 3 ML IH SCH ×2 (03:45→10:15)
[2020-04-23 04:12] LABS: Basophils % 0.1 %; Eosinophils % 0.1 %; Hematocrit 34.9 % (37.5-50.1); Hemoglobin 11.2 g/dL (12.9-16.9); Immature Granulocytes % 0.6 % (0-4); Lymphocytes # 1.2 K/mcL (0.6-4.6); Lymphocytes % 13.5 %; Mean Corpuscular HGB Conc 32.1 g/dL (31.6-35.5); Mean Corpuscular Hemoglobin 29.5 pg (28.0-33.3); Mean Corpuscular Volume 91.8 fL (83.0-100.0); Mean Platelet Volume 10.5 fL (9.4-12.4); Monocytes # 0.9 K/mcL (0.0-1.3); Monocytes % 9.6 %; Neutrophils # 6.8 K/mcL (1.6-8.9); Platelet Count 275 K/mcL (140-400); Red Cell Distribution Width 13.2 % (11.5-14.5); Segmented Neutrophils % 76.1 %
[2020-04-23 04:13] LABS: White Blood Count 8.9 K/mcL (4.3-11.1)
[2020-04-23 04:33] LABS: BUN/Creatinine Ratio 30 (6-26); Blood Urea Nitrogen 34 mg/dL (8-23); Calcium 8.6 mg/dL (8.6-10.3); Carbon Dioxide 25 mEq/L (23-29); Chloride 96 mEq/L (98-107); Glucose 110 mg/dL (70-105); Osmolality,Calculated 278 (280-300); Potassium 4.1 mEq/L (3.5-5.1); Sodium 130 mEq/L (136-145); eGFR For African Americans > 60 (> 60); eGFR For Non-African Americans > 60 (> 60)
[2020-04-23] MEDS: *HR* Heparin 5,000 UNIT/ML VIAL SQ SCH (05:46)
[2020-04-23] MEDS ORDERED: hydrOXYzine pamoate 25 MG CAPSULE PO PRN (07:40)
[2020-04-23 07:48] VITALS: BP 170/80
[2020-04-23] MEDS ORDERED: Furosemide 20 MG TABLET PO SCH (09:00)
[2020-04-23] MEDS ORDERED: Cortisporin *EAR*Susp 10 ML BOTTLE OT SCH (09:00)
[2020-04-23] MEDS ORDERED: Cholecalciferol (D-3) 1,000 UNIT (25MCG) TABLET PO SCH (09:00)
[2020-04-23] MEDS ORDERED: Isosorbide MONOnitrate (24 HR) 60 MG TAB.ER.24H PO SCH (09:00)
[2020-04-23] MEDS ORDERED: Cyanocobalamin (B-12) 1,000 MCG TABLET PO SCH (09:00)
[2020-04-23] MEDS ORDERED: lisinopriL 20 MG TABLET PO SCH (09:00)
[2020-04-23] MEDS ORDERED: Aspirin Enteric Coated 81 MG Tablet PO SCH (09:00)
[2020-04-23] MEDS: predniSONE 20 MG TABLET PO SCH (09:35)
[2020-04-23] MEDS: Doxycycline 100 MG CAPSULE PO SCH (09:35)
[2020-04-23] MEDS ORDERED: Budesonide/Formoterol 160/4.5 1 PUFF INH IH SCH (10:00)
== END 2020-04-23 11:23 | disposition home or self-care (01) ==
LOC: EMEROOARM 20:20 → 3NENU 20:20 → SUATTDRO 22:33 → 3NENU 23:19 → 3ANU 04-22 13:54
PROVIDERS: ADMIT Internal Medicine; ATTEND Internal Medicine